=== PATIENT | male | born 1960 | race Caucasian/White ===

== ENCOUNTER 2016-09-06 15:21 | Outpatient (CLI) | payer BC ==
[2016-09-06 15:54] LABS: Hemoglobin A1c 5.5 % (4.0-6.0)
[2016-09-06 15:56] LABS: ALT (SGPT) 37 U/L (0-55); AST (SGOT) 42 U/L (5-34); Alkaline Phosphatase 69 U/L (40-150); Anion Gap 18 mmol/L (10-20); BUN (Urea Nitrogen) 16 mg/dL (8.4-25.7); Bilirubin, Total 0.8 mg/dL (0.2-1.2); Calc. Creatinine Clearance 0 mL/min (70-130); Calcium 8.9 mg/dL (7.8-10.44); Carbon Dioxide 23 mmol/L (22-29); Chloride 104 mmol/L (98-107); Estimated GFR-MDRD 67; Globulin 3.5 g/dL (2.4-3.5); LDL Cholesterol, Calculated 102 mg/dL; Protein, Total 7.4 g/dL (6.0-8.3)
[2016-09-06 16:15] LABS: #Basophils 0.1 thou/uL (0.0-0.2); #Eosinphils 0.2 thou/uL (0.0-0.7); #Lymphocytes 1.9 thou/uL (1.20-3.40); #Monocytes 0.7 thou/uL (0.11-0.59); #Neutrophils 3.1 thou/uL (1.40-6.50); %Eosinophils 3.8 % (0.0-10.0); %Lymphocytes 31.6 % (21.0-51.0); %Monocytes 11.5 % (0.0-10.0); Hematocrit 49.4 % (42.0-52.0); Mean Platelet Volume 7.3 fL (7.4-10.4); Red Blood Cell (RBC) Count 5.21 mill/uL (4.70-6.10); White Blood Cell (WBC) Count 5.9 thou/uL (4.8-10.8)
== END 2016-09-06 15:22 | disposition home or self-care (01) ==
LOC: NAV SJFMSP 15:21
PROVIDERS: ATTEND Family Medicine
DX: Z00.00 Encounter for general adult medical examination without abnormal findings (principal)
CPT/HCPCS: 80053; 80061; 83036; 84439; 84443; 85025

== ENCOUNTER 2018-05-31 06:13 | Emergency (ER) | payer BC ==
[2018-05-31] MEDS ORDERED: Enoxaparin Sodium 120 MG/0.8 ML SYRINGE SC ONE (06:53)
[2018-05-31] MEDS ORDERED: Enoxaparin Sodium 60 MG/0.6 ML SYRINGE ONE (06:54)
[2018-05-31] MEDS ORDERED: Enoxaparin Sodium 80 MG/0.8 ML SYRINGE ONE (06:54)
[2018-05-31] MEDS ORDERED: Diltiazem 125 MG/25 ML ONE (06:56)
[2018-05-31] MEDS ORDERED: Sodium Chloride 0.9% 100 ML ONE (06:59)
[2018-05-31 07:03] LABS: #Basophils 0.1 thou/uL (0.0-0.2); #Eosinphils 0.2 thou/uL (0.0-0.7); #Lymphocytes 1.8 thou/uL (1.20-3.40); #Monocytes 1.2 thou/uL (0.11-0.59); #Neutrophils 6.1 thou/uL (1.40-6.50); %Basophils 1.1 % (0.0-1.0); %Eosinophils 1.7 % (0.0-10.0); %Lymphocytes 19.1 % (21.0-51.0); %Monocytes 13.1 % (0.0-10.0); Hemoglobin 16.1 g/dL (14.0-18.0); Mean Corpuscular HGB CONC 31.5 g/dL (32.0-36.0); Mean Corpuscular Hemoglobin 30.1 pg (27.0-31.0); Mean Corpuscular Volume 95.5 fL (78.0-98.0); Mean Platelet Volume 9.9 fL (7.4-10.4); Platelet Count 234 thou/uL (130-400); Red Blood Cell (RBC) Count 5.36 mill/uL (4.70-6.10); White Blood Cell (WBC) Count 9.3 thou/uL (4.8-10.8)
[2018-05-31 07:17] LABS: ALT (SGPT) 31 U/L (8-55); AST (SGOT) 36 U/L (5-34); Alkaline Phosphatase 69 U/L (40-150); Anion Gap 19 mmol/L (10-20); BUN (Urea Nitrogen) 17 mg/dL (8.4-25.7); Bilirubin, Total 0.8 mg/dL (0.2-1.2); CK (CPK) 47 U/L (30-200); Calc. Creatinine Clearance 0 mL/min (70-130); Calcium 9.7 mg/dL (7.8-10.44); Carbon Dioxide 22 mmol/L (22-29); Chloride 100 mmol/L (98-107); Estimated GFR-MDRD 59; Globulin 4.1 g/dL (2.4-3.5); Glucose 121 mg/dL (70-105); Potassium 4.5 mmol/L (3.5-5.1); Protein, Total 8.1 g/dL (6.0-8.3); Sodium 136 mmol/L (136-145)
[2018-05-31 07:18] LABS: Troponin I Less than 0.010 ng/mL (< 0.028)
[2018-05-31 07:20] LABS: CKMB 1.4 ng/mL (0-6.6)
--- NOTE | 2018-05-31 08:27 | CT ---
CTA THORAX WITH CONTRAST: (Computed Tomographic Angiography, chest(noncoronary) with contrast material, and image postprocessin g) (PE protocol) Date: 05/31/18 Time: 0753 hours HISTORY: 58-year-old male with dyspnea. TECHNIQUE: IV injection of iodinated contrast: 70 mL of Isovue-[id number]. Scan acquisition timing attempted to coincide with iodinated contrast bolus reaching maximal density in pulmonary arteries. 3D MIP reconstructions. FINDINGS: There are small bilateral pleural effusions. There are mild pulmonary patchy densities in the bilater al lower lobes, left greater than right, and left upper lobe. Prominent interstitial markings in the right upper lobe. There is cardiomegaly with chamber dilation. Ectasia and tortuosity of the thoracic aorta without aneurysm. No mediastinal or significant hilar lymphadenopathy. There is no pulmonary t hromboembolism. IMPRESSION: 1. No pulmonary thromboembolism. 2. Evidence for congestive heart failure: cardiomegaly, small bilateral pleural effusions, and bila teral pulmonary densities that probably represent pulmonary edema, less likely pneumonia. aden[] POS: GERRY
[2018-05-31] MEDS ORDERED: Furosemide 40 MG/4 ML VIAL ONE (08:33)
--- NOTE | 2018-05-31 08:48 | RAD ---
RADIOGRAPH CHEST 1 VIEW: Date: 05/31/18 Time: 0659 hours HISTORY: 58-year-old male with dyspnea. COMPARISON: None available. FINDINGS: There is widening of the cardiomediastinal silhouette. The CTA obtained shortly thereafter demonstrat es that this is a combination of cardiomegaly, large paracardial fat pads, and mediastinal lipomatosi s. There is diffuse pulmonary venous engorgement. Small bilateral pleural effusions demonstrated on t his CTA are more difficult to appreciate on this plain chest radiograph. Prominent interstitial berta ngs probably represent mild pulmonary edema. No pneumothorax. IMPRESSION: Evidence for congestive heart failure. ZEFERINO [] POS: GERRY
[2018-05-31] MEDS ORDERED: Iopamidol 370 76% 100 ML VIAL ONE (09:00)
== END 2018-05-31 09:01 | disposition short-term general hospital (02) ==
LOC: NAV ERS 06:13
DX: I48.91 Unspecified atrial fibrillation (principal); I11.0 Hypertensive heart disease with heart failure; I50.9 Heart failure, unspecified; Z79.899 Other long term (current) drug therapy
CPT/HCPCS: 71045; 71275; 80053; 82550; 82553; 83880; 84484; 85025; 85379; 93005; 96365; 96366; 96372; 96374; 96376; J1650; J1940; J7050

== ENCOUNTER 2022-01-11 12:55 | Emergency (ER) | payer BC | END 2022-01-11 13:49 | disposition home or self-care (01) | LOC: NAV ERS 12:55 | DX: I10 Essential (primary) hypertension (principal); R00.1 Bradycardia, unspecified; I48.91 Unspecified atrial fibrillation; Z79.899 Other long term (current) drug therapy | CPT/HCPCS: 99283 ==